=== PATIENT | female | born 1990 | race Caucasian/White ===

== ENCOUNTER 2023-12-07 15:39 | Outpatient (CLI) | payer OTHER ==
--- NOTE | 2023-12-08 17:17 | Ultrasound Report ---
PROCEDURE: Transvaginal INDICATIONS: HIRSUTISM TECHNIQUE: Real-time endovaginal scanning was performed of the pelvic organs, with image documentation. COMPARISON: None. FINDINGS: Uterus: Uterus is anteverted and normal in size at 7.6 x 4.9 x 4.8 cm. The myometrium is homogeneou s. The endometrium measures 11.8 mm in combined thickness. Ovaries: The right ovary measures 2.6 x 1.1 x 2.3 cm, with a calculated ovarian volume of 3.3 cc. T he left ovary measures 2.5 x 1.8 x 2.6 cm, with a calculated ovarian volume of 6.3 cc. The ovaries h ave a normal sonographic appearance. Greater than than 12 follicles can be seen in each ovary. No a dnexal masses are seen. No cystic lesions measuring greater than 3 cm. Other: No pathologic free abdominal or pelvic fluid. IMPRESSION: Bilateral ovarian follicles appearing less than 1 cm in size. Reviewed by: Destini Sebastian MD on 12/08/2023 5:16 PM PDT Approved by: Destini Sebastian MD on 12/08/2023 5:16 PM PDT Station ID: [id number]
== END 2023-12-07 15:40 | disposition home or self-care (01) ==
LOC: DI 15:39
PROVIDERS: ATTEND Student in an Organized Health Care Education/Training Program
DX: L68.0 Hirsutism (principal)